=== PATIENT | male | born 1955 | race Caucasian/White ===

== ENCOUNTER 2016-09-02 21:18 | Emergency (ER) | payer BC, SELFPAY | END 2016-09-03 04:50 | disposition short-term general hospital (02) | LOC: ER 21:18 | DX: K29.80 Duodenitis without bleeding (principal); K27.9 Peptic ulcer, site unspecified, unspecified as acute or chronic, without hemorrhage or perforation; R74.8 Abnormal levels of other serum enzymes; E13.10 Other specified diabetes mellitus with ketoacidosis without coma; E87.2 Acidosis; R53.1 Weakness; M54.9 Dorsalgia, unspecified; R11.2 Nausea with vomiting, unspecified; E11.40 Type 2 diabetes mellitus with diabetic neuropathy, unspecified; F17.220 Nicotine dependence, chewing tobacco, uncomplicated; Z79.899 Other long term (current) drug therapy; Z79.84 Long term (current) use of oral hypoglycemic drugs ==